=== PATIENT | male | born 1960 | race Caucasian/White ===

== ENCOUNTER 2016-09-06 06:26 | Day surgery (SDC) | payer BC ==
[2016-09-06] VITALS (13 sets, daily range): BP systolic 62–122; BP diastolic 37–73
[~2016-09-06] VITALS: Ht 193 cm; Wt 156.0 kg
[~2016-09-06 06:26] MED LIST: ACET325T38 PO; ALLO300T2 PO; FURO-125; GLYB2.5T4 PO; IBUP100T46; LACTATED RINGERS 1,000 ML IV SCH; LIRA0.6P SC; METF1000 PO; NF-LT10/20 PO; POTA25TA7; ROSU10TA; SODIUM CHLORIDE FLUSH 3 ML SYR IV PRN; TRIC15SO
--- OUTSIDE RECORDS SUMMARY | 2016-09-06 06:30 | XMS REPORT | Continuity of Care Document ---
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 Visit Date/Time Discharge Status Pt. Type Provider Facility Loc./Unit Complaint [id number] 08/13/2013 15:35:00 2013 23:59:59 CLS Outpatient MARTHA OVALLES, GAIL Younger [facility] RAD [id number] 09/06/2016 14:40:00 PEN Preadmit CHRIS OVALLES, FRANCHESCA [facility] COLONOSCOPY [id number] 02/15/2012 12:06:00 Document Registration [id number] 02/15/2012 11:00:00 Document Registration
[2016-09-06] MEDS ORDERED: FENO160T PO (06:49)
[2016-09-06] MEDS ORDERED: FISH1CAP15 PO (06:49)
[2016-09-06] MEDS ORDERED: ATOR40TA59 PO (06:49)
[2016-09-06] MEDS ORDERED: PIOG15TA22 PO (06:49)
[2016-09-06] MEDS ORDERED: DAPA10TA PO (06:49)
[2016-09-06] MEDS ORDERED: PROPOFOL 20 ML IV ONE (07:20)
[2016-09-06] MEDS ORDERED: MIDAZOLAM 2 MG/2 ML (VERSED) VIAL ONE (07:20)
[2016-09-06] MEDS ORDERED: ALFENTANIL 500 MCG/ML (ALFENTA) 5 ML AMP IV ONE ×2 (07:20)
--- NOTE | 2016-09-06 08:16 | OPERATIVE REPORT ---
DATE OF OPERATION: 09/06/2016 PRE-OPERATIVE DIAGNOSIS: Screening colonoscopy POST-OPERATIVE DIAGNOSIS: 1. Rectal polyp. 2. Sigmoid diverticula. 3. Anal skin tag. OPERATIVE PROCEDURE: Total colonoscopy with snare polypectomy SURGEON: Adrien Castro MD ANESTHESIA: IV conscious sedation, Monitored Anesthesia Services POSITION: Left lateral decubitus ESTIMATED BLOOD LOSS: Minimal FINDINGS: 1. A small pedunculated, mid rectal polyp. 2. A few wide mouth sigmoid and descending colon diverticula. 3. External hemorrhoidal anal skin tag. 4. Good prep. OPERATIVE NOTE: Following satisfactory induction of analgesia a digital rectal exam was performed. This revealed the above noted hemorrhoidal skin tag located on the left posterolateral aspect of the anal orifice. No rectal mass was palpable. The prostate was normal. Sphincter tone was normal. Next the colonoscope was introduced per rectum and advanced under CO2 insufflation and direct vision to the cecum. The cecum was identified by the appendiceal orifice, ileocecal valve, convergence of the teniae, and palpation of the right lower quadrant. The above findings were noted. Shoe Caser photographs were obtained. The above areas were carefully inspected again as the scope was slowly withdrawn. The polyp was removed using a snare and submitted to pathology. Good hemostasis was noted at the polypectomy site. Retroflexed view of the rectum was normal. Excess insufflated CO2 was evacuated and the scope removed. The patient tolerated the procedure well and transferred to recovery in stable condition. RECOMMENDATIONS: If this is an adenomatous polyp, the patient will need to have repeat colonoscopy in 5 years. If it is a hyperplastic polyp, then he would require colonoscopy in 10 years absent symptoms.
== END 2016-09-06 11:01 | disposition home or self-care (01) ==
LOC: ASC 06:26
PROVIDERS: ATTEND Surgery
DX: Z12.11 Encounter for screening for malignant neoplasm of colon (principal); D12.8 Benign neoplasm of rectum; K57.30 Diverticulosis of large intestine without perforation or abscess without bleeding; K64.4 Residual hemorrhoidal skin tags; I10 Essential (primary) hypertension; E11.9 Type 2 diabetes mellitus without complications; Z79.84 Long term (current) use of oral hypoglycemic drugs
CPT/HCPCS: 45385; J2250; J7120